=== PATIENT | female | born 1935 | race Caucasian/White ===

== ENCOUNTER 2022-04-28 10:50 | Outpatient (CLI) | payer OTHER ==
[~2022-04-28 10:50] MED LIST: DURICEF 500 MG CAPSULE PO; OXYC1TAB9 PO
== END 2022-04-28 10:51 | disposition home or self-care (01) ==
LOC: SONOGRAMA 10:50
PROVIDERS: ATTEND Pathology Anatomic Pathology & Clinical Pathology
DX: E06.3 Autoimmune thyroiditis (principal)